=== PATIENT | male | born 1955 | race African-American/Black ===

== ENCOUNTER 2021-11-14 16:21 | Emergency (ER) | payer BC, OTHER ==
[2021-11-14 16:38] VITALS: BMI 27.1
[2021-11-14] MEDS ORDERED: morphine CARPU-JECT 4 MG/1 ML DISP.SYRIN IVPUSH ONE (18:11)
[2021-11-14] MEDS ORDERED: FAMOTIDINE 20 MG/50 ML IVPB 20 MG/50 ML MG IVPB ONE ×2 (18:11→19:21)
[2021-11-14] MEDS ORDERED: SODIUM CHLORIDE 0.9% 500 ML INFUS.BAG IV ONE (18:11)
[2021-11-14] MEDS ORDERED: ONDANSETRON 4 MG/2 ML VIAL IVPUSH ONE (18:13)
[2021-11-14] MEDS ORDERED: ACETAMINOPHEN 325 MG TABLET (FP) PO ONE (18:45)
[2021-11-14 18:50] LABS: BASO % 0.5 % (0-2.0); EOS % 0.6 % (0-4.5); HEMATOCRIT 38.6 % (35.4-49); LYMPH % 13.3 % (8-40); MCH 30.1 pg (25.7-33.7); MCHC 33.6 g/dl (32.0-35.9); MEAN CELL VOLUME 89.7 fl (80-96); MEAN PLT VOLUME 8.7 fl (7.5-11.1); MONO % 10.9 % (3.8-10.2); NEUT % 74.7 % (42.8-82.8); PLATELET COUNT 107 10^3/uL (134-434); RBC 4.31 M/mm3 (4.00-5.60); RDW 15.8 % (11.9-15.9); WHITE BLOOD COUNT 7.9 K/mm3 (4.0-10.0)
[2021-11-14 19:02] LABS: INR 1.46 (0.83-1.09); PROTHROMBIN TIME (PATIENT) 16.9 SEC (9.7-13.0)
[2021-11-14 19:04] LABS: ACTIVATED PTT 30.5 SECONDS (25.2-36.5)
[2021-11-14 19:07] LABS: ALBUMIN 3.5 g/dl (3.4-5.0); BLOOD UREA NITROGEN 8.7 mg/dL (7-18); CALCIUM 9.6 mg/dL (8.5-10.1)
[2021-11-14 19:12] LABS: BILIRUBIN,TOTAL 0.9 mg/dL (0.2-1); TOT PROT 9.2 g/dl (6.4-8.2)
[2021-11-14] MEDS ORDERED: ONDANSETRON 4 MG/2 ML VIAL ONE (19:21)
[2021-11-14] MEDS ORDERED: morphine SULFATE 4 MG/ML VIAL ONE (19:21)
[2021-11-14] MEDS ORDERED: ACETAMINOPHEN 325 MG TABLET (FP) ONE (21:08)
[2021-11-15 04:29] VITALS: BP 137/88; PULSE 102; TEMP 100
== END 2021-11-15 04:30 | disposition short-term general hospital (02) ==
LOC: JER 16:21
PROC: 3E033GC Introduction of Other Therapeutic Substance into Peripheral Vein, Percutaneous Approach (ICD-10-PCS; principal; 2021-11-14)
PROC: 3E033NZ Introduction of Analgesics, Hypnotics, Sedatives into Peripheral Vein, Percutaneous Approach (ICD-10-PCS; 2021-11-14)
PROC: 3E033GC Introduction of Other Therapeutic Substance into Peripheral Vein, Percutaneous Approach (ICD-10-PCS; 2021-11-14)
DX: R16.0 Hepatomegaly, not elsewhere classified (principal)
CPT/HCPCS: 36415; 74177-TC; 80053; 82550; 83605; 83690; 84484; 85025; 85610; 85730; 93005; 93010; 99285-25; C9803; Q9967; U0003; U0005

== ENCOUNTER 2022-08-16 21:10 | Inpatient (IN) | payer OTHER, BC ==
[2022-08-16 23:30] LABS: BASO % 1.2 % (0-2.0); EOS % 4.2 % (0-4.5); HEMATOCRIT 47.9 % (35.4-49); HEMOGLOBIN 16.4 GM/dL (11.7-16.9); LYMPH % 24.1 % (8-40); MCH 30.8 pg (25.7-33.7); MCHC 34.2 g/dl (32.0-35.9); MEAN PLT VOLUME 7.1 fl (7.5-11.1); MONO % 6.1 % (3.8-10.2); NEUT % 64.4 % (42.8-82.8); PLATELET COUNT 131 10^3/uL (134-434); RBC 5.32 M/mm3 (4.00-5.60); RDW 14.5 % (11.9-15.9); WHITE BLOOD COUNT 6.6 K/mm3 (4.0-10.0)
[2022-08-16 23:52] LABS: CALCIUM 9.3 mg/dL (8.5-10.1)
[2022-08-16 23:53] LABS: ALBUMIN 4.1 g/dl (3.4-5.0); BLOOD UREA NITROGEN 12.5 mg/dL (7-18)
[2022-08-16 23:56] LABS: CREATININE 1.2 mg/dL (0.55-1.3)
[2022-08-16 23:57] LABS: BILIRUBIN,TOTAL 0.6 mg/dL (0.2-1); TOT PROT 8.1 g/dl (6.4-8.2)
[2022-08-17] MEDS ORDERED: SODIUM CHLORIDE 1,000 ML IV SCH (04:15)
[2022-08-17 05:36] VITALS: BMI 28.5
[2022-08-17] MEDS ORDERED: ACITRETIN 10 MG PO SCH (10:00)
[2022-08-17] MEDS: LISINOPRIL 5 MG TABLET PO SCH (10:10)
[2022-08-17] MEDS: ENOXAPARIN NA (PORCINE) 40 MG/0.4 ML DISP.SYRIN SQ SCH (10:10)
[2022-08-17] MEDS: TRIAMCINOLONE ACET 0.1% OINT 15 GM TUBE TP SCH (12:00)
[2022-08-17 13:04] LABS: BASO % 0.6 % (0-2.0); EOS % 6.6 % (0-4.5); HEMATOCRIT 43.2 % (35.4-49); HEMOGLOBIN 14.9 GM/dL (11.7-16.9); LYMPH % 26.5 % (8-40); MCH 30.9 pg (25.7-33.7); MCHC 34.5 g/dl (32.0-35.9); MEAN CELL VOLUME 89.8 fl (80-96); MEAN PLT VOLUME 7.5 fl (7.5-11.1); MONO % 7.6 % (3.8-10.2); NEUT % 58.7 % (42.8-82.8); PLATELET COUNT 104 10^3/uL (134-434); RDW 14.4 % (11.9-15.9); WHITE BLOOD COUNT 4.6 K/mm3 (4.0-10.0)
[2022-08-17 13:29] LABS: ALBUMIN 3.3 g/dl (3.4-5.0); BLOOD UREA NITROGEN 16.5 mg/dL (7-18); CALCIUM 8.8 mg/dL (8.5-10.1); MAGNESIUM 2.1 mg/dL (1.8-2.4)
[2022-08-17 13:33] LABS: PHOSPHOROUS 3.7 mg/dL (2.5-4.9)
[2022-08-17 13:34] LABS: BILIRUBIN,TOTAL 0.7 mg/dL (0.2-1); TOT PROT 6.7 g/dl (6.4-8.2)
[2022-08-17] MEDS: ASPIRIN 81 MG CHEWABLE TABLETS PO SCH (15:57)
[2022-08-17] MEDS: ATORVASTATIN CA 80 MG TABLET (FP) PO SCH (15:57)
[2022-08-17] MEDS: SENNOSIDES 8.6MG TABLET (FP) PO SCH (21:25)
[2022-08-17] MEDS: traZODone HCL 50 MG TABLET (FP) PO SCH (21:25)
[2022-08-18] MEDS: LISINOPRIL 5 MG TABLET PO SCH (09:58)
[2022-08-18] MEDS: ASPIRIN 81 MG CHEWABLE TABLETS PO SCH (09:58)
[2022-08-18] MEDS: ENOXAPARIN NA (PORCINE) 40 MG/0.4 ML DISP.SYRIN SQ SCH (09:58)
[2022-08-18] MEDS: TRIAMCINOLONE ACET 0.1% OINT 15 GM TUBE TP SCH (10:01)
[2022-08-18] MEDS: traZODone HCL 50 MG TABLET (FP) PO SCH (21:42)
[2022-08-18] MEDS: ATORVASTATIN CA 80 MG TABLET (FP) PO SCH (21:42)
[2022-08-18] MEDS: SENNOSIDES 8.6MG TABLET (FP) PO SCH (21:42)
[2022-08-19] MEDS: ENOXAPARIN NA (PORCINE) 40 MG/0.4 ML DISP.SYRIN SQ SCH (09:49)
[2022-08-19] MEDS: TRIAMCINOLONE ACET 0.1% OINT 15 GM TUBE TP SCH (09:49)
[2022-08-19] MEDS: LISINOPRIL 5 MG TABLET PO SCH (09:49)
[2022-08-19] MEDS: ASPIRIN 81 MG CHEWABLE TABLETS PO SCH (09:49)
[2022-08-19] MEDS: ATORVASTATIN CA 80 MG TABLET (FP) PO SCH (21:12)
[2022-08-19] MEDS: traZODone HCL 50 MG TABLET (FP) PO SCH (21:12)
[2022-08-19] MEDS: SENNOSIDES 8.6MG TABLET (FP) PO SCH (21:12)
[2022-08-20 09:43] VITALS: PULSE 66; RESP 18
[2022-08-20] MEDS: TRIAMCINOLONE ACET 0.1% OINT 15 GM TUBE TP SCH (09:55)
[2022-08-20] MEDS: LISINOPRIL 5 MG TABLET PO SCH (09:57)
[2022-08-20] MEDS: ASPIRIN 81 MG CHEWABLE TABLETS PO SCH (09:57)
[2022-08-20] MEDS: ENOXAPARIN NA (PORCINE) 40 MG/0.4 ML DISP.SYRIN SQ SCH (10:07)
[2022-08-20 13:27] VITALS: BP 129/80; TEMP 98
== END 2022-08-20 13:51 | disposition home or self-care (01) | DRG 312 ==
LOC: JER 21:10 → JERBED 08-17 00:05 → J4W 08-17 05:11
PROVIDERS: ADMIT Internal Medicine; ATTEND Internal Medicine
DX: R55 Syncope and collapse (principal); C22.7 Other specified carcinomas of liver; I10 Essential (primary) hypertension; E78.5 Hyperlipidemia, unspecified; F32.A Depression, unspecified; F10.10 Alcohol abuse, uncomplicated
CPT/HCPCS: 36415; 70551-TC; 71046-TC-FY; 80053; 83735; 84100; 84443; 84484; 85025; 93005; 93010; 93306-TC; 99285-25; C9803-CS; U0003; U0005

== ENCOUNTER 2022-11-02 00:58 | Inpatient (IN) | payer BC, OTHER ==
[2022-11-02] MEDS ORDERED: SODIUM CHLORIDE 1,000 ML IV STA (02:31)
[2022-11-02] MEDS ORDERED: ACETAMINOPHEN 1000 MG/100 ML BAG IVPB ONE (02:31)
[2022-11-02] MEDS ORDERED: ACETAMINOPHEN INJECTION 100 ML IVPB ONE (02:36)
[2022-11-02 03:50] LABS: BASO % 0.5 % (0-2.0); HEMATOCRIT 47.6 % (35.4-49); HEMOGLOBIN 16.2 GM/dL (11.7-16.9); LYMPH % 15.2 % (8-40); MCH 31.5 pg (25.7-33.7); MEAN CELL VOLUME 92.7 fl (80-96); MEAN PLT VOLUME 8.6 fl (7.5-11.1); MONO % 8.6 % (3.8-10.2); NEUT % 71.7 % (42.8-82.8); PLATELET COUNT 113 10^3/uL (134-434); RBC 5.13 M/mm3 (4.00-5.60); RDW 14.6 % (11.9-15.9); WHITE BLOOD COUNT 8.5 K/mm3 (4.0-10.0)
[2022-11-02 04:05] LABS: INR 1.09 (0.83-1.09); PROTHROMBIN TIME (PATIENT) 12.5 SEC (9.7-13.0)
[2022-11-02 04:13] LABS: CALCIUM 9.2 mg/dL (8.5-10.1)
[2022-11-02 04:14] LABS: ALBUMIN 4.1 g/dl (3.4-5.0); BLOOD UREA NITROGEN 39.6 mg/dL (7-18)
[2022-11-02 04:17] LABS: CREATININE 5.5 mg/dL (0.55-1.3)
[2022-11-02 04:18] LABS: TOT PROT 8.5 g/dl (6.4-8.2)
[2022-11-02 04:19] LABS: BILIRUBIN,TOTAL 0.9 mg/dL (0.2-1)
[2022-11-02] MEDS ORDERED: SODIUM CHLORIDE 500 ML IV STA (08:00)
[2022-11-02] MEDS: oxyCODONE HCL 5 MG TABLET PO PRN ×3 (08:34→23:03)
[2022-11-02] MEDS: SODIUM CHLORIDE 1,000 ML IV SCH ×3 (09:00→16:39)
[2022-11-02] MEDS: NICOTINE 21 MG/24 HOURS TOPICAL PATCH TD SCH ×2 (12:36→14:09)
[2022-11-02] MEDS: CEFTRIAXONE 1 GM in DEXTROSE 5%-WATER - 50 ML IVPB SCH (12:37)
[2022-11-02 13:47] VITALS: BMI 28.3
[2022-11-02] MEDS: HEPARIN NA (PORCINE) 5,000 UNITS/ML 1ML VIAL SQ SCH ×2 (14:06→22:56)
[2022-11-02 15:12] LABS: EPI CELLS 11 /uL (0-25.1); HYALINE CASTS 1 /uL (0-3.1); PH,URINE 5.5 (5.0-8.0); URINE APPEARANCE CLEAR; URINE BACTERIA 2 /uL (0-1359); URINE BILIRUBIN NEGATIVE (NEGATIVE); URINE COLOR YELLOW; URINE GLUCOSE (UA) NEGATIVE (NEGATIVE); URINE KETONE NEGATIVE (NEGATIVE); URINE LEUK ESTERASE NEGATIVE (NEGATIVE); URINE NITRITE NEGATIVE (NEGATIVE); URINE PROTEIN 1+ (NEGATIVE); URINE RBC 15 /uL (0-23.9); URINE UROBILINOGEN 0.2 mg/dL (0.2-1.0); URINE WBC 24 /uL (0-25.8)
[2022-11-02] MEDS: ACETAMINOPHEN 325 MG TABLET (FP) PO PRN (16:38)
[2022-11-02 18:47] LABS: ALBUMIN 3.8 g/dl (3.4-5.0); CALCIUM 8.9 mg/dL (8.5-10.1)
[2022-11-02 18:48] LABS: BLOOD UREA NITROGEN 37.8 mg/dL (7-18)
[2022-11-02 18:50] LABS: CREATININE 3.8 mg/dL (0.55-1.3)
[2022-11-02 18:52] LABS: BILIRUBIN,TOTAL 0.9 mg/dL (0.2-1); TOT PROT 7.9 g/dl (6.4-8.2)
[2022-11-02] MEDS: traZODone HCL 50 MG TABLET (FP) PO SCH (22:56)
[2022-11-03] MEDS: ACETAMINOPHEN 325 MG TABLET (FP) PO PRN (07:49)
[2022-11-03] MEDS: HEPARIN NA (PORCINE) 5,000 UNITS/ML 1ML VIAL SQ SCH ×2 (07:52→13:36)
[2022-11-03] MEDS: NICOTINE 21 MG/24 HOURS TOPICAL PATCH TD SCH (09:25)
[2022-11-03] MEDS: CEFTRIAXONE 1 GM in DEXTROSE 5%-WATER - 50 ML IVPB SCH (09:25)
[2022-11-03 10:07] LABS: BASO % 0.3 % (0-2.0); EOS % 0.5 % (0-4.5); HEMATOCRIT 44.9 % (35.4-49); HEMOGLOBIN 14.8 GM/dL (11.7-16.9); MCH 30.8 pg (25.7-33.7); MEAN CELL VOLUME 93.1 fl (80-96); MEAN PLT VOLUME 9.1 fl (7.5-11.1); MONO % 7.7 % (3.8-10.2); NEUT % 81.5 % (42.8-82.8); PLATELET COUNT 88 10^3/uL (134-434); RBC 4.82 M/mm3 (4.00-5.60); RDW 14.8 % (11.9-15.9); WHITE BLOOD COUNT 6.9 K/mm3 (4.0-10.0)
[2022-11-03 10:40] LABS: CALCIUM 8.7 mg/dL (8.5-10.1)
[2022-11-03 10:41] LABS: ALBUMIN 3.6 g/dl (3.4-5.0); BLOOD UREA NITROGEN 31.6 mg/dL (7-18); MAGNESIUM 2.1 mg/dL (1.8-2.4)
[2022-11-03 10:43] LABS: PHOSPHOROUS 3.2 mg/dL (2.5-4.9)
[2022-11-03 10:44] LABS: CREATININE 2.6 mg/dL (0.55-1.3)
[2022-11-03 10:45] LABS: TOT PROT 7.6 g/dl (6.4-8.2)
[2022-11-03] MEDS: SODIUM CHLORIDE 1,000 ML IV SCH ×2 (12:03→16:00)
[2022-11-04] MEDS: MAG HYDROX/AL HYDROX/SIMETH 30 ML UNIT-DOSE CUP PO PRN ×2 (00:28→06:27)
[2022-11-04] MEDS: HEPARIN NA (PORCINE) 5,000 UNITS/ML 1ML VIAL SQ SCH ×4 (00:29→22:11)
[2022-11-04] MEDS: traZODone HCL 50 MG TABLET (FP) PO SCH ×2 (00:29→22:11)
[2022-11-04] MEDS: SODIUM CHLORIDE 1,000 ML IV SCH ×3 (00:56→16:00)
[2022-11-04] MEDS ORDERED: ACETAMINOPHEN 1000 MG/100 ML BAG IVPB ONE (06:36)
[2022-11-04] MEDS ORDERED: ONDANSETRON *ODT* 4 MG TABLET SL ONE (06:36)
[2022-11-04] MEDS: CEFTRIAXONE 1 GM in DEXTROSE 5%-WATER - 50 ML IVPB SCH (09:17)
[2022-11-04] MEDS: NICOTINE 21 MG/24 HOURS TOPICAL PATCH TD SCH (09:17)
[2022-11-04 10:36] LABS: BASO % 0.3 % (0-2.0); EOS % 0.1 % (0-4.5); HEMATOCRIT 44.1 % (35.4-49); HEMOGLOBIN 14.6 GM/dL (11.7-16.9); LYMPH % 9.6 % (8-40); MCH 30.8 pg (25.7-33.7); MEAN CELL VOLUME 93.3 fl (80-96); MEAN PLT VOLUME 8.6 fl (7.5-11.1); MONO % 9.5 % (3.8-10.2); NEUT % 80.5 % (42.8-82.8); PLATELET COUNT 95 10^3/uL (134-434); RBC 4.73 M/mm3 (4.00-5.60); RDW 14.5 % (11.9-15.9); WHITE BLOOD COUNT 7.8 K/mm3 (4.0-10.0)
[2022-11-04 11:10] LABS: ALBUMIN 3.5 g/dl (3.4-5.0); BLOOD UREA NITROGEN 29.4 mg/dL (7-18); CREATININE 2.1 mg/dL (0.55-1.3)
[2022-11-04 11:12] LABS: BILIRUBIN,TOTAL 0.8 mg/dL (0.2-1); MAGNESIUM 2.4 mg/dL (1.8-2.4); TOT PROT 7.6 g/dl (6.4-8.2)
[2022-11-04] MEDS: amLODIPine BESYLATE 10 MG TABLET (FP) PO SCH (11:59)
[2022-11-04] MEDS ORDERED: SENNOSIDES 8.6MG TABLET (FP) PO PRN (17:30)
[2022-11-04] MEDS: POLYETHYLENE GLYCOL (HEALTHYLAX) 3350 17 GM PACKET PO SCH (22:11)
[2022-11-04] MEDS: DOCUSATE SODIUM 100 MG CAPSULE (FP) PO SCH (22:11)
[2022-11-04] MEDS: hydrALAZINE HCL 10 MG TABLET PO SCH (22:11)
[2022-11-05] MEDS: ACETAMINOPHEN 325 MG TABLET (FP) PO PRN ×2 (04:42→13:38)
[2022-11-05] MEDS: DOCUSATE SODIUM 100 MG CAPSULE (FP) PO SCH ×3 (06:49→22:14)
[2022-11-05] MEDS: HEPARIN NA (PORCINE) 5,000 UNITS/ML 1ML VIAL SQ SCH ×3 (06:50→22:23)
[2022-11-05] MEDS: NICOTINE 21 MG/24 HOURS TOPICAL PATCH TD SCH (09:57)
[2022-11-05] MEDS: POLYETHYLENE GLYCOL (HEALTHYLAX) 3350 17 GM PACKET PO SCH ×2 (09:57→22:23)
[2022-11-05] MEDS: hydrALAZINE HCL 10 MG TABLET PO SCH ×2 (09:57→22:14)
[2022-11-05] MEDS: CEFTRIAXONE 1 GM in DEXTROSE 5%-WATER - 50 ML IVPB SCH (09:57)
[2022-11-05] MEDS: amLODIPine BESYLATE 10 MG TABLET (FP) PO SCH (09:57)
[2022-11-05 11:28] LABS: CALCIUM 8.8 mg/dL (8.5-10.1)
[2022-11-05 11:29] LABS: ALBUMIN 3.4 g/dl (3.4-5.0); BLOOD UREA NITROGEN 26.9 mg/dL (7-18); MAGNESIUM 2.3 mg/dL (1.8-2.4)
[2022-11-05 11:32] LABS: CREATININE 1.7 mg/dL (0.55-1.3)
[2022-11-05 11:33] LABS: TOT PROT 7.4 g/dl (6.4-8.2)
[2022-11-05 11:34] LABS: BILIRUBIN,TOTAL 0.8 mg/dL (0.2-1)
[2022-11-05] MEDS: traZODone HCL 50 MG TABLET (FP) PO SCH (22:14)
[2022-11-06] MEDS: HEPARIN NA (PORCINE) 5,000 UNITS/ML 1ML VIAL SQ SCH ×2 (06:48→13:20)
[2022-11-06] MEDS: DOCUSATE SODIUM 100 MG CAPSULE (FP) PO SCH ×3 (06:48→23:38)
[2022-11-06] MEDS: amLODIPine BESYLATE 10 MG TABLET (FP) PO SCH (09:20)
[2022-11-06] MEDS: hydrALAZINE HCL 10 MG TABLET PO SCH ×2 (09:20→23:38)
[2022-11-06] MEDS: POLYETHYLENE GLYCOL (HEALTHYLAX) 3350 17 GM PACKET PO SCH ×2 (09:22→23:38)
[2022-11-06] MEDS: CEFTRIAXONE 1 GM in DEXTROSE 5%-WATER - 50 ML IVPB SCH (09:23)
[2022-11-06] MEDS: NICOTINE 21 MG/24 HOURS TOPICAL PATCH TD SCH (09:23)
[2022-11-06 10:01] LABS: CALCIUM 8.6 mg/dL (8.5-10.1)
[2022-11-06 10:02] LABS: ALBUMIN 3.4 g/dl (3.4-5.0); BLOOD UREA NITROGEN 21.6 mg/dL (7-18); MAGNESIUM 2.3 mg/dL (1.8-2.4)
[2022-11-06 10:05] LABS: CREATININE 1.6 mg/dL (0.55-1.3)
[2022-11-06 10:07] LABS: BILIRUBIN,TOTAL 0.9 mg/dL (0.2-1); TOT PROT 7.5 g/dl (6.4-8.2)
[2022-11-06 10:25] LABS: BASO % 0.4 % (0-2.0); HEMATOCRIT 45.2 % (35.4-49); HEMOGLOBIN 15.1 GM/dL (11.7-16.9); LYMPH % 14.9 % (8-40); MCH 31.5 pg (25.7-33.7); MCHC 33.4 g/dl (32.0-35.9); MEAN CELL VOLUME 94.3 fl (80-96); MEAN PLT VOLUME 9.3 fl (7.5-11.1); MONO % 10.2 % (3.8-10.2); NEUT % 73.5 % (42.8-82.8); PLATELET COUNT 118 10^3/uL (134-434); RDW 14.5 % (11.9-15.9); WHITE BLOOD COUNT 8.3 K/mm3 (4.0-10.0)
[2022-11-06] MEDS ORDERED: FUROSEMIDE 40 MG/4 ML INJECTABLE VIAL IVPUSH ONE (11:06)
[2022-11-06] MEDS: ACETAMINOPHEN 325 MG TABLET (FP) PO PRN (13:02)
[2022-11-06] MEDS ORDERED: HEPARIN NA (PORCINE) 5,000 UNITS/ML 1ML VIAL IVPUSH PRN ×2 (18:26)
[2022-11-06] MEDS: HEPARIN - 25,000 UNIT in SODIUM CHLORIDE 495 ML IV SCH (22:34)
[2022-11-06] MEDS: traZODone HCL 50 MG TABLET (FP) PO SCH (23:38)
[2022-11-07] MEDS: DOCUSATE SODIUM 100 MG CAPSULE (FP) PO SCH ×3 (05:04→22:39)
[2022-11-07] MEDS: NICOTINE 21 MG/24 HOURS TOPICAL PATCH TD SCH (09:41)
[2022-11-07] MEDS: POLYETHYLENE GLYCOL (HEALTHYLAX) 3350 17 GM PACKET PO SCH ×2 (09:41→22:39)
[2022-11-07] MEDS: CEFTRIAXONE 1 GM in DEXTROSE 5%-WATER - 50 ML IVPB SCH (09:41)
[2022-11-07] MEDS: hydrALAZINE HCL 10 MG TABLET PO SCH ×2 (09:41→22:39)
[2022-11-07] MEDS: amLODIPine BESYLATE 10 MG TABLET (FP) PO SCH (09:41)
[2022-11-07 10:37] LABS: ACTIVATED PTT 26.3 SECONDS (25.2-36.5)
[2022-11-07 10:40] LABS: BASO % 0.5 % (0-2.0); EOS % 0.8 % (0-4.5); HEMATOCRIT 41.2 % (35.4-49); HEMOGLOBIN 13.7 GM/dL (11.7-16.9); LYMPH % 11.5 % (8-40); MCH 31.2 pg (25.7-33.7); MCHC 33.2 g/dl (32.0-35.9); MEAN PLT VOLUME 8.9 fl (7.5-11.1); MONO % 9.9 % (3.8-10.2); NEUT % 77.3 % (42.8-82.8); PLATELET COUNT 112 10^3/uL (134-434); RBC 4.38 M/mm3 (4.00-5.60); RDW 14.5 % (11.9-15.9); WHITE BLOOD COUNT 8.2 K/mm3 (4.0-10.0)
[2022-11-07 10:53] LABS: INR 1.16 (0.83-1.09); PROTHROMBIN TIME (PATIENT) 13.4 SEC (9.7-13.0)
[2022-11-07] MEDS: MAG HYDROX/AL HYDROX/SIMETH 30 ML UNIT-DOSE CUP PO PRN (11:30)
[2022-11-07 11:39] LABS: ALBUMIN 3.1 g/dl (3.4-5.0); BLOOD UREA NITROGEN 23.5 mg/dL (7-18)
[2022-11-07 11:41] LABS: CALCIUM 8.4 mg/dL (8.5-10.1)
[2022-11-07 11:42] LABS: CREATININE 1.7 mg/dL (0.55-1.3); MAGNESIUM 2.2 mg/dL (1.8-2.4)
[2022-11-07 11:43] LABS: BILIRUBIN,TOTAL 1.3 mg/dL (0.2-1); TOT PROT 7.1 g/dl (6.4-8.2)
[2022-11-07] MEDS: oxyCODONE HCL 5 MG TABLET PO PRN (13:05)
[2022-11-07] MEDS: HEPARIN - 25,000 UNIT in SODIUM CHLORIDE 495 ML IV SCH (18:20)
[2022-11-07] MEDS: AMINO ACIDS/PROTEIN HYDROLYS 30 ML LIQUID.PKT PO SCH (18:28)
[2022-11-07] MEDS: traZODone HCL 50 MG TABLET (FP) PO SCH (22:39)
[2022-11-08] MEDS: HEPARIN - 25,000 UNIT in SODIUM CHLORIDE 495 ML IV SCH (02:06)
[2022-11-08] MEDS: DOCUSATE SODIUM 100 MG CAPSULE (FP) PO SCH ×3 (05:33→22:14)
[2022-11-08] MEDS: CEFTRIAXONE 1 GM in DEXTROSE 5%-WATER - 50 ML IVPB SCH (09:52)
[2022-11-08] MEDS: hydrALAZINE HCL 10 MG TABLET PO SCH ×2 (09:52→22:14)
[2022-11-08] MEDS: AMINO ACIDS/PROTEIN HYDROLYS 30 ML LIQUID.PKT PO SCH ×2 (09:52→17:44)
[2022-11-08] MEDS: NICOTINE 21 MG/24 HOURS TOPICAL PATCH TD SCH (09:52)
[2022-11-08] MEDS: amLODIPine BESYLATE 10 MG TABLET (FP) PO SCH (09:52)
[2022-11-08] MEDS: POLYETHYLENE GLYCOL (HEALTHYLAX) 3350 17 GM PACKET PO SCH ×2 (09:52→22:14)
[2022-11-08 11:06] LABS: BASO % 0.5 % (0-2.0); EOS % 1.5 % (0-4.5); HEMATOCRIT 42.6 % (35.4-49); HEMOGLOBIN 14.3 GM/dL (11.7-16.9); LYMPH % 9.9 % (8-40); MCH 31.7 pg (25.7-33.7); MCHC 33.6 g/dl (32.0-35.9); MEAN CELL VOLUME 94.1 fl (80-96); MEAN PLT VOLUME 8.3 fl (7.5-11.1); MONO % 7.6 % (3.8-10.2); NEUT % 80.5 % (42.8-82.8); PLATELET COUNT 147 10^3/uL (134-434); RBC 4.53 M/mm3 (4.00-5.60); RDW 14.2 % (11.9-15.9); WHITE BLOOD COUNT 9.8 K/mm3 (4.0-10.0)
[2022-11-08 11:42] LABS: ALBUMIN 3.2 g/dl (3.4-5.0); BILIRUBIN,TOTAL 0.8 mg/dL (0.2-1); BLOOD UREA NITROGEN 26.2 mg/dL (7-18); CALCIUM 8.7 mg/dL (8.5-10.1); CREATININE 1.8 mg/dL (0.55-1.3); MAGNESIUM 2.3 mg/dL (1.8-2.4)
[2022-11-08 11:43] LABS: TOT PROT 7.1 g/dl (6.4-8.2)
[2022-11-08] MEDS: oxyCODONE HCL 5 MG TABLET PO PRN ×2 (12:34→20:08)
[2022-11-08] MEDS: traZODone HCL 50 MG TABLET (FP) PO SCH (22:13)
[2022-11-09] MEDS: HEPARIN - 25,000 UNIT in SODIUM CHLORIDE 495 ML IV SCH ×2 (01:35→19:29)
[2022-11-09] MEDS: ACETAMINOPHEN 325 MG TABLET (FP) PO PRN (02:27)
[2022-11-09] MEDS: DOCUSATE SODIUM 100 MG CAPSULE (FP) PO SCH ×4 (07:06→22:50)
[2022-11-09] MEDS: oxyCODONE HCL 5 MG TABLET PO PRN ×2 (07:07→22:55)
[2022-11-09 09:45] LABS: HEMATOCRIT 39.2 % (35.4-49); HEMOGLOBIN 13.2 GM/dL (11.7-16.9); MCH 31.4 pg (25.7-33.7); MCHC 33.6 g/dl (32.0-35.9); MEAN CELL VOLUME 93.5 fl (80-96); MEAN PLT VOLUME 8.5 fl (7.5-11.1); PLATELET COUNT 193 10^3/uL (134-434); RDW 14.4 % (11.9-15.9); WHITE BLOOD COUNT 9.3 K/mm3 (4.0-10.0)
[2022-11-09 10:19] LABS: CALCIUM 8.9 mg/dL (8.5-10.1)
[2022-11-09 10:20] LABS: BLOOD UREA NITROGEN 26.9 mg/dL (7-18)
[2022-11-09 10:23] LABS: CREATININE 1.6 mg/dL (0.55-1.3)
[2022-11-09] MEDS: POLYETHYLENE GLYCOL (HEALTHYLAX) 3350 17 GM PACKET PO SCH ×3 (10:37→22:50)
[2022-11-09] MEDS: hydrALAZINE HCL 10 MG TABLET PO SCH ×2 (10:37→22:50)
[2022-11-09] MEDS: AMINO ACIDS/PROTEIN HYDROLYS 30 ML LIQUID.PKT PO SCH ×2 (10:37→18:28)
[2022-11-09] MEDS: NICOTINE 21 MG/24 HOURS TOPICAL PATCH TD SCH (10:37)
[2022-11-09] MEDS: amLODIPine BESYLATE 10 MG TABLET (FP) PO SCH (10:37)
[2022-11-09] MEDS: ENOXAPARIN NA (PORCINE) 100 MG/1 ML DISP.SYRIN SQ SCH (22:49)
[2022-11-09] MEDS: traZODone HCL 50 MG TABLET (FP) PO SCH (22:50)
[2022-11-10] MEDS: DOCUSATE SODIUM 100 MG CAPSULE (FP) PO SCH ×3 (07:02→22:45)
[2022-11-10] MEDS: oxyCODONE HCL 5 MG TABLET PO PRN (07:02)
[2022-11-10 09:59] LABS: ALBUMIN 2.9 g/dl (3.4-5.0)
[2022-11-10 10:00] LABS: BLOOD UREA NITROGEN 24.9 mg/dL (7-18); MAGNESIUM 2.2 mg/dL (1.8-2.4)
[2022-11-10 10:02] LABS: CALCIUM 8.9 mg/dL (8.5-10.1); CREATININE 1.6 mg/dL (0.55-1.3)
[2022-11-10 10:04] LABS: BILIRUBIN,TOTAL 0.8 mg/dL (0.2-1); TOT PROT 6.9 g/dl (6.4-8.2)
[2022-11-10] MEDS: hydrALAZINE HCL 10 MG TABLET PO SCH ×2 (10:08→22:44)
[2022-11-10] MEDS: POLYETHYLENE GLYCOL (HEALTHYLAX) 3350 17 GM PACKET PO SCH ×3 (10:08→22:45)
[2022-11-10] MEDS: ESCITALOPRAM OXALATE 10 MG TABLET PO SCH (10:08)
[2022-11-10] MEDS: ENOXAPARIN NA (PORCINE) 100 MG/1 ML DISP.SYRIN SQ SCH ×2 (10:09→22:45)
[2022-11-10] MEDS: NICOTINE 21 MG/24 HOURS TOPICAL PATCH TD SCH (10:09)
[2022-11-10] MEDS: AMINO ACIDS/PROTEIN HYDROLYS 30 ML LIQUID.PKT PO SCH ×3 (10:09→17:12)
[2022-11-10] MEDS: amLODIPine BESYLATE 10 MG TABLET (FP) PO SCH (10:09)
[2022-11-10] MEDS: ACETAMINOPHEN 325 MG TABLET (FP) PO PRN (10:10)
[2022-11-10] MEDS: CEFTRIAXONE 1 GM in DEXTROSE 5%-WATER - 50 ML IVPB SCH (11:57)
[2022-11-10] MEDS: traZODone HCL 50 MG TABLET (FP) PO SCH (22:44)
[2022-11-11] MEDS: DOCUSATE SODIUM 100 MG CAPSULE (FP) PO SCH ×3 (06:12→22:15)
[2022-11-11] MEDS: CEFTRIAXONE 1 GM in DEXTROSE 5%-WATER - 50 ML IVPB SCH (10:11)
[2022-11-11] MEDS: POLYETHYLENE GLYCOL (HEALTHYLAX) 3350 17 GM PACKET PO SCH ×2 (10:12→22:18)
[2022-11-11] MEDS: AMINO ACIDS/PROTEIN HYDROLYS 30 ML LIQUID.PKT PO SCH ×2 (10:12→17:36)
[2022-11-11] MEDS: amLODIPine BESYLATE 10 MG TABLET (FP) PO SCH (10:13)
[2022-11-11] MEDS: ENOXAPARIN NA (PORCINE) 100 MG/1 ML DISP.SYRIN SQ SCH ×2 (10:13→22:19)
[2022-11-11] MEDS: hydrALAZINE HCL 10 MG TABLET PO SCH ×2 (10:13→22:15)
[2022-11-11] MEDS: ESCITALOPRAM OXALATE 10 MG TABLET PO SCH (10:13)
[2022-11-11] MEDS: NICOTINE 21 MG/24 HOURS TOPICAL PATCH TD SCH (10:15)
[2022-11-11 10:46] LABS: ALBUMIN 2.9 g/dl (3.4-5.0); BLOOD UREA NITROGEN 25.6 mg/dL (7-18); MAGNESIUM 2.2 mg/dL (1.8-2.4)
[2022-11-11 10:48] LABS: CREATININE 1.6 mg/dL (0.55-1.3)
[2022-11-11 10:50] LABS: TOT PROT 7.1 g/dl (6.4-8.2)
[2022-11-11 10:51] LABS: CALCIUM 8.8 mg/dL (8.5-10.1)
[2022-11-11] MEDS: ACETAMINOPHEN 325 MG TABLET (FP) PO PRN (14:15)
[2022-11-11] MEDS: traZODone HCL 50 MG TABLET (FP) PO SCH (22:15)
[2022-11-12] MEDS: DOCUSATE SODIUM 100 MG CAPSULE (FP) PO SCH ×3 (06:00→22:47)
[2022-11-12] MEDS: AMINO ACIDS/PROTEIN HYDROLYS 30 ML LIQUID.PKT PO SCH ×2 (09:41→17:11)
[2022-11-12] MEDS: NICOTINE 21 MG/24 HOURS TOPICAL PATCH TD SCH (09:41)
[2022-11-12] MEDS: ESCITALOPRAM OXALATE 10 MG TABLET PO SCH (09:41)
[2022-11-12] MEDS: hydrALAZINE HCL 10 MG TABLET PO SCH ×2 (09:41→22:48)
[2022-11-12] MEDS: amLODIPine BESYLATE 10 MG TABLET (FP) PO SCH (09:41)
[2022-11-12] MEDS: ENOXAPARIN NA (PORCINE) 100 MG/1 ML DISP.SYRIN SQ SCH ×2 (09:41→22:48)
[2022-11-12] MEDS: CEFTRIAXONE 1 GM in DEXTROSE 5%-WATER - 50 ML IVPB SCH (09:42)
[2022-11-12] MEDS: POLYETHYLENE GLYCOL (HEALTHYLAX) 3350 17 GM PACKET PO SCH ×2 (09:44→22:49)
[2022-11-12 10:18] LABS: ALBUMIN 2.8 g/dl (3.4-5.0); BILIRUBIN,TOTAL 0.6 mg/dL (0.2-1); BLOOD UREA NITROGEN 25.3 mg/dL (7-18); CALCIUM 8.9 mg/dL (8.5-10.1); CREATININE 1.5 mg/dL (0.55-1.3); MAGNESIUM 2.5 mg/dL (1.8-2.4); TOT PROT 6.7 g/dl (6.4-8.2)
[2022-11-12] MEDS: ACETAMINOPHEN 325 MG TABLET (FP) PO PRN (14:55)
[2022-11-12] MEDS: traZODone HCL 50 MG TABLET (FP) PO SCH (22:47)
[2022-11-13] MEDS: ACETAMINOPHEN 325 MG TABLET (FP) PO PRN (03:28)
[2022-11-13] MEDS: DOCUSATE SODIUM 100 MG CAPSULE (FP) PO SCH ×3 (06:33→21:51)
[2022-11-13] MEDS: CEFTRIAXONE 1 GM in DEXTROSE 5%-WATER - 50 ML IVPB SCH (10:17)
[2022-11-13] MEDS: AMINO ACIDS/PROTEIN HYDROLYS 30 ML LIQUID.PKT PO SCH ×2 (10:17→17:07)
[2022-11-13] MEDS: POLYETHYLENE GLYCOL (HEALTHYLAX) 3350 17 GM PACKET PO SCH ×2 (10:17→21:50)
[2022-11-13] MEDS: NICOTINE 21 MG/24 HOURS TOPICAL PATCH TD SCH (10:18)
[2022-11-13] MEDS: ENOXAPARIN NA (PORCINE) 100 MG/1 ML DISP.SYRIN SQ SCH ×2 (10:19→21:51)
[2022-11-13] MEDS: hydrALAZINE HCL 10 MG TABLET PO SCH ×2 (10:20→21:51)
[2022-11-13] MEDS: ESCITALOPRAM OXALATE 10 MG TABLET PO SCH (10:20)
[2022-11-13] MEDS: amLODIPine BESYLATE 10 MG TABLET (FP) PO SCH (10:20)
[2022-11-13] MEDS: SIMETHICONE 80 MG TAB.CHEW (FP) PO PRN ×3 (11:17→17:07)
[2022-11-13] MEDS: NYSTATIN 100,000 UNIT/GM TOPICAL CREAM 15 GM TUBE TP SCH ×2 (14:41→21:57)
[2022-11-13] MEDS: traZODone HCL 50 MG TABLET (FP) PO SCH (21:51)
[2022-11-13] MEDS: oxyCODONE HCL 5 MG TABLET PO PRN (21:56)
[2022-11-14] MEDS: ACETAMINOPHEN 325 MG TABLET (FP) PO PRN ×2 (04:00→20:20)
[2022-11-14] MEDS: DOCUSATE SODIUM 100 MG CAPSULE (FP) PO SCH ×3 (06:22→22:29)
[2022-11-14] MEDS: AMINO ACIDS/PROTEIN HYDROLYS 30 ML LIQUID.PKT PO SCH ×3 (09:53→17:31)
[2022-11-14] MEDS: ENOXAPARIN NA (PORCINE) 100 MG/1 ML DISP.SYRIN SQ SCH ×2 (09:55→22:30)
[2022-11-14] MEDS: amLODIPine BESYLATE 10 MG TABLET (FP) PO SCH (09:55)
[2022-11-14] MEDS: AMOX TR/POT CLAV 500MG/125MG TABLETS (FP) PO SCH ×2 (09:55→17:31)
[2022-11-14] MEDS: hydrALAZINE HCL 10 MG TABLET PO SCH ×2 (09:55→22:30)
[2022-11-14] MEDS: ESCITALOPRAM OXALATE 10 MG TABLET PO SCH (09:55)
[2022-11-14] MEDS: NICOTINE 21 MG/24 HOURS TOPICAL PATCH TD SCH (09:56)
[2022-11-14] MEDS: POLYETHYLENE GLYCOL (HEALTHYLAX) 3350 17 GM PACKET PO SCH ×2 (09:57→22:30)
[2022-11-14] MEDS: NYSTATIN 100,000 UNIT/GM TOPICAL CREAM 15 GM TUBE TP SCH ×2 (10:03→22:30)
[2022-11-14 10:21] LABS: BASO % 0.4 % (0-2.0); HEMATOCRIT 36.9 % (35.4-49); HEMOGLOBIN 12.3 GM/dL (11.7-16.9); LYMPH % 10.2 % (8-40); MCH 31.2 pg (25.7-33.7); MCHC 33.4 g/dl (32.0-35.9); MEAN CELL VOLUME 93.3 fl (80-96); MEAN PLT VOLUME 8.6 fl (7.5-11.1); MONO % 10.9 % (3.8-10.2); NEUT % 70.5 % (42.8-82.8); PLATELET COUNT 178 10^3/uL (134-434); RBC 3.96 M/mm3 (4.00-5.60); RDW 13.8 % (11.9-15.9)
[2022-11-14 10:45] LABS: CALCIUM 8.6 mg/dL (8.5-10.1)
[2022-11-14 10:46] LABS: ALBUMIN 2.7 g/dl (3.4-5.0); BLOOD UREA NITROGEN 22.5 mg/dL (7-18)
[2022-11-14 10:47] LABS: MAGNESIUM 2.3 mg/dL (1.8-2.4)
[2022-11-14 10:49] LABS: CREATININE 1.3 mg/dL (0.55-1.3)
[2022-11-14 10:50] LABS: TOT PROT 6.7 g/dl (6.4-8.2)
[2022-11-14 10:51] LABS: BILIRUBIN,TOTAL 0.5 mg/dL (0.2-1)
[2022-11-14] MEDS: AMINO ACIDS 4.25%/D5W 1,000 ML IV SCH ×2 (14:39→20:14)
[2022-11-14] MEDS: oxyCODONE HCL 5 MG TABLET PO PRN (14:39)
[2022-11-14] MEDS ORDERED: MIRTAZAPINE 15 MG TABLET (FP) PO SCH (22:00)
[2022-11-14] MEDS: traZODone HCL 50 MG TABLET (FP) PO SCH (22:29)
[2022-11-15] MEDS: oxyCODONE HCL 5 MG TABLET PO PRN (06:21)
[2022-11-15] MEDS: DOCUSATE SODIUM 100 MG CAPSULE (FP) PO SCH ×2 (06:22→14:10)
[2022-11-15] MEDS: AMOX TR/POT CLAV 500MG/125MG TABLETS (FP) PO SCH ×2 (09:17→18:05)
[2022-11-15] MEDS: amLODIPine BESYLATE 10 MG TABLET (FP) PO SCH (09:17)
[2022-11-15] MEDS: ESCITALOPRAM OXALATE 10 MG TABLET PO SCH (09:17)
[2022-11-15] MEDS: hydrALAZINE HCL 10 MG TABLET PO SCH (09:17)
[2022-11-15] MEDS: AMINO ACIDS/PROTEIN HYDROLYS 30 ML LIQUID.PKT PO SCH ×2 (09:17→18:05)
[2022-11-15] MEDS: POLYETHYLENE GLYCOL (HEALTHYLAX) 3350 17 GM PACKET PO SCH (09:17)
[2022-11-15] MEDS: NYSTATIN 100,000 UNIT/GM TOPICAL CREAM 15 GM TUBE TP SCH (09:18)
[2022-11-15] MEDS: NICOTINE 21 MG/24 HOURS TOPICAL PATCH TD SCH (09:18)
[2022-11-15] MEDS: ENOXAPARIN NA (PORCINE) 100 MG/1 ML DISP.SYRIN SQ SCH (09:18)
[2022-11-15 10:59] LABS: HEMATOCRIT 38.6 % (35.4-49); HEMOGLOBIN 13.1 GM/dL (11.7-16.9); MCH 31.6 pg (25.7-33.7); MCHC 33.9 g/dl (32.0-35.9); MEAN CELL VOLUME 93.4 fl (80-96); RBC 4.13 M/mm3 (4.00-5.60); RDW 13.8 % (11.9-15.9)
[2022-11-15 11:02] LABS: WHITE BLOOD COUNT 8.2 K/mm3 (4.0-10.0)
[2022-11-15 11:19] LABS: CALCIUM 8.7 mg/dL (8.5-10.1)
[2022-11-15 11:20] LABS: BLOOD UREA NITROGEN 20.8 mg/dL (7-18); MAGNESIUM 2.1 mg/dL (1.8-2.4)
[2022-11-15 11:22] LABS: CREATININE 1.3 mg/dL (0.55-1.3)
[2022-11-15 11:24] LABS: BILIRUBIN,TOTAL 0.5 mg/dL (0.2-1); TOT PROT 6.9 g/dl (6.4-8.2)
[2022-11-15 11:38] LABS: ANISOCYTOSIS 0; HELMET CELLS 0; HOWELL-JOLLY BODIES 0; MACROCYTOSIS 0; OVALOCYTE 0; ROULEAU 0; SICKELED CELLS 0; TARGET CELLS 0; TEAR DROP CELLS 0; TOXIC GRANULATION 0
[2022-11-15] MEDS: ACETAMINOPHEN 325 MG TABLET (FP) PO PRN (12:56)
[2022-11-15] MEDS: AMINO ACIDS 4.25%/D5W 1,000 ML IV SCH (13:39)
[2022-11-15 15:20] VITALS: BP 116/77; PULSE 77; RESP 16; TEMP 98.1
[2022-11-15] MEDS ORDERED: TAMSULOSIN HCL 0.4 MG CAP PO SCH (20:30)
[2022-11-16] MEDS ORDERED: FINASTERIDE 5 MG TABLET (FP) PO SCH (10:00)
[2022-11-17] MEDS ORDERED: APIXABAN 5 MG TABLET PO SCH (10:00)
== END 2022-11-15 19:09 | DRG 683 ==
LOC: JER 00:58 → JERBED 07:01 → J8W 13:23
PROVIDERS: ADMIT Internal Medicine; ATTEND Nurse Practitioner Family
DX: N17.9 Acute kidney failure, unspecified (principal); B48.8 Other specified mycoses; C22.0 Liver cell carcinoma; I82.413 Acute embolism and thrombosis of femoral vein, bilateral; N39.0 Urinary tract infection, site not specified; N10 Acute pyelonephritis; G47.00 Insomnia, unspecified; F17.210 Nicotine dependence, cigarettes, uncomplicated; D69.6 Thrombocytopenia, unspecified; E86.1 Hypovolemia; R21 Rash and other nonspecific skin eruption; R19.7 Diarrhea, unspecified; B96.89 Other specified bacterial agents as the cause of diseases classified elsewhere; R80.9 Proteinuria, unspecified; R63.0 Anorexia; Z68.28 Body mass index [BMI] 28.0-28.9, adult; R10.9 Unspecified abdominal pain; B19.20 Unspecified viral hepatitis C without hepatic coma; F32.A Depression, unspecified; N40.1 Benign prostatic hyperplasia with lower urinary tract symptoms; R33.8 Other retention of urine
CPT/HCPCS: 0241U-QW; 36415; 71045-TC-FY; 74018-TC-FY; 74176-TC; 80048; 80053; 81003; 82570; 83690; 83735; 84100; 84300; 85025; 85027; 85610; 85730; 87086; 87186; 93005; 93010; 93970-TC; 97116-GP; 97162-GP; 99285-25; C9803-CS; J1644; Q0162; U0003; U0005

== ENCOUNTER 2023-03-23 15:43 | Emergency (ER) | payer OTHER, BC ==
[2023-03-23 15:51] VITALS: BP 164/91; PULSE 65; RESP 18; TEMP 98.2; BMI 16.3
[2023-03-23 16:39] LABS: BASO % 0.9 % (0-2.0); EOS % 9.8 % (0-4.5); HEMATOCRIT 38.4 % (35.4-49); HEMOGLOBIN 13.1 GM/dL (11.7-16.9); LYMPH % 20.4 % (8-40); MCH 31.2 pg (25.7-33.7); MCHC 34.1 g/dl (32.0-35.9); MEAN CELL VOLUME 91.7 fl (80-96); MEAN PLT VOLUME 7.6 fl (7.5-11.1); MONO % 9.2 % (3.8-10.2); NEUT % 59.7 % (42.8-82.8); PLATELET COUNT 168 10^3/uL (134-434); RBC 4.19 M/mm3 (4.00-5.60); RDW 16.2 % (11.9-15.9)
[2023-03-23 17:05] LABS: POTASSIUM 3.9 mmol/L (3.5-5.1)
[2023-03-23 17:07] LABS: CALCIUM 8.9 mg/dL (8.5-10.1)
[2023-03-23 17:08] LABS: ALBUMIN 3.7 g/dl (3.4-5.0); BLOOD UREA NITROGEN 14.7 mg/dL (7-18)
[2023-03-23 17:11] LABS: CREATININE 1.2 mg/dL (0.55-1.3)
[2023-03-23 17:13] LABS: BILIRUBIN,TOTAL 0.4 mg/dL (0.2-1); TOT PROT 7.9 g/dl (6.4-8.2)
== END 2023-03-23 20:45 | disposition home or self-care (01) ==
LOC: JERFT 15:43 → JER 15:43 → JERFT 20:45
DX: I82.503 Chronic embolism and thrombosis of unspecified deep veins of lower extremity, bilateral (principal); I10 Essential (primary) hypertension; R60.9 Edema, unspecified; M79.89 Other specified soft tissue disorders; R05.9 Cough, unspecified
CPT/HCPCS: 36415; 80053; 85025; 93970-TC; 99284-25

== ENCOUNTER 2023-04-19 07:25 | Inpatient (IN) | payer BC, OTHER ==
[2023-04-19 08:19] LABS: INR 1.65 (0.83-1.09)
[2023-04-19 08:21] LABS: ACTIVATED PTT 35.6 SECONDS (25.2-36.5); BASO % 0.9 % (0-2.0); EOS % 7.3 % (0-4.5); HEMATOCRIT 46.2 % (35.4-49); HEMOGLOBIN 15.4 GM/dL (11.7-16.9); LYMPH % 22.5 % (8-40); MCH 29.6 pg (25.7-33.7); MCHC 33.4 g/dl (32.0-35.9); MEAN CELL VOLUME 88.6 fl (80-96); MEAN PLT VOLUME 7.6 fl (7.5-11.1); NEUT % 60.3 % (42.8-82.8); PLATELET COUNT 205 10^3/uL (134-434); RBC 5.22 M/mm3 (4.00-5.60); RDW 15.4 % (11.9-15.9); WHITE BLOOD COUNT 4.9 K/mm3 (4.0-10.0)
[2023-04-19 08:24] LABS: POTASSIUM 4.1 mmol/L (3.5-5.1)
[2023-04-19 08:28] LABS: ALBUMIN 3.9 g/dl (3.4-5.0); CALCIUM 9.6 mg/dL (8.5-10.1)
[2023-04-19 08:29] LABS: BLOOD UREA NITROGEN 14.7 mg/dL (7-18)
[2023-04-19 08:31] LABS: CREATININE 1.7 mg/dL (0.55-1.3)
[2023-04-19 08:33] LABS: BILIRUBIN,TOTAL 1.2 mg/dL (0.2-1); TOT PROT 8.2 g/dl (6.4-8.2)
[2023-04-19] MEDS ORDERED: SODIUM CHLORIDE 0.9% 500 ML INFUS.BAG IV ONE (08:46)
[2023-04-19] MEDS ORDERED: oxyCODONE HCL 5 MG TABLET PO PRN (11:22)
[2023-04-19] MEDS ORDERED: SENNOSIDES/DOCUSATE COMBO (SENNA PLUS) TABLET (UD) PO PRN (11:22)
[2023-04-19] MEDS ORDERED: DOCUSATE SODIUM 100 MG CAPSULE (FP) PO PRN (11:22)
[2023-04-19] MEDS ORDERED: traZODone HCL 50 MG TABLET (FP) PO PRN (11:22)
[2023-04-19 12:14] LABS: BILIRUBIN,DIRECT 0.2 mg/dL (0.0-0.2)
[2023-04-19 16:38] VITALS: BMI 27.7
[2023-04-19] MEDS: SODIUM CHLORIDE 1,000 ML IV SCH (17:16)
[2023-04-19] MEDS ORDERED: levETIRAcetam 500 MG/5 ML INJECTION VIAL IVPB ONE ×2 (19:44→22:00)
[2023-04-19] MEDS: APIXABAN 5 MG TABLET PO SCH (21:52)
[2023-04-19] MEDS: ATORVASTATIN CA 40 MG TABLET (FP) PO SCH (21:52)
[2023-04-20 07:23] LABS: BASO % 0.6 % (0-2.0); EOS % 5.4 % (0-4.5); HEMATOCRIT 41.4 % (35.4-49); HEMOGLOBIN 13.7 GM/dL (11.7-16.9); LYMPH % 21.8 % (8-40); MCH 29.8 pg (25.7-33.7); MCHC 33.1 g/dl (32.0-35.9); MONO % 8.4 % (3.8-10.2); NEUT % 63.8 % (42.8-82.8); PLATELET COUNT 155 10^3/uL (134-434); RBC 4.61 M/mm3 (4.00-5.60); WHITE BLOOD COUNT 4.5 K/mm3 (4.0-10.0)
[2023-04-20] MEDS: SODIUM CHLORIDE 1,000 ML IV SCH (07:46)
[2023-04-20 07:48] LABS: POTASSIUM 3.9 mmol/L (3.5-5.1)
[2023-04-20 07:49] LABS: CALCIUM 8.9 mg/dL (8.5-10.1)
[2023-04-20 07:50] LABS: MAGNESIUM 1.8 mg/dL (1.8-2.4)
[2023-04-20 07:51] LABS: BLOOD UREA NITROGEN 14.1 mg/dL (7-18)
[2023-04-20 07:53] LABS: CREATININE 1.2 mg/dL (0.55-1.3)
[2023-04-20 07:54] LABS: PHOSPHOROUS 3.3 mg/dL (2.5-4.9)
[2023-04-20 07:55] LABS: TOT PROT 6.6 g/dl (6.4-8.2)
[2023-04-20 07:56] LABS: BILIRUBIN,TOTAL 0.4 mg/dL (0.2-1)
[2023-04-20 08:01] LABS: ALBUMIN 3.1 g/dl (3.4-5.0)
[2023-04-20] MEDS ORDERED: ESCITALOPRAM OXALATE 10 MG TABLET PO SCH (10:00)
[2023-04-20] MEDS: amLODIPine BESYLATE 10 MG TABLET (FP) PO SCH (10:45)
[2023-04-20] MEDS: TAMSULOSIN HCL 0.4 MG CAP PO SCH (10:45)
[2023-04-20] MEDS: APIXABAN 5 MG TABLET PO SCH ×2 (10:45→21:26)
[2023-04-20] MEDS: levETIRAcetam 500 MG TABLET (FP) PO SCH ×2 (10:46→21:28)
[2023-04-20] MEDS: FINASTERIDE 5 MG TABLET (FP) PO SCH (10:46)
[2023-04-20] MEDS: LISINOPRIL 5 MG TABLET PO SCH (10:46)
[2023-04-20] MEDS: NICOTINE 14 MG/24 HOURS TOPICAL PATCH TD SCH (10:46)
[2023-04-20] MEDS: ASPIRIN 81 MG CHEWABLE TABLETS PO SCH (10:46)
[2023-04-20] MEDS: MIRTAZAPINE 15 MG TABLET (FP) PO SCH (21:26)
[2023-04-20] MEDS: ATORVASTATIN CA 40 MG TABLET (FP) PO SCH (21:27)
[2023-04-21 08:48] LABS: POTASSIUM 3.7 mmol/L (3.5-5.1)
[2023-04-21 08:59] LABS: BLOOD UREA NITROGEN 10.6 mg/dL (7-18)
[2023-04-21 09:02] LABS: CREATININE 1.1 mg/dL (0.55-1.3)
[2023-04-21] MEDS: NICOTINE 14 MG/24 HOURS TOPICAL PATCH TD SCH (10:16)
[2023-04-21] MEDS: levETIRAcetam 500 MG TABLET (FP) PO SCH ×2 (10:16→22:02)
[2023-04-21] MEDS: FINASTERIDE 5 MG TABLET (FP) PO SCH (10:16)
[2023-04-21] MEDS: TAMSULOSIN HCL 0.4 MG CAP PO SCH (10:16)
[2023-04-21] MEDS: ASPIRIN 81 MG CHEWABLE TABLETS PO SCH (10:16)
[2023-04-21] MEDS: APIXABAN 5 MG TABLET PO SCH ×2 (10:16→22:02)
[2023-04-21] MEDS: amLODIPine BESYLATE 10 MG TABLET (FP) PO SCH (10:16)
[2023-04-21] MEDS: ESCITALOPRAM OXALATE 20 MG TABLET PO SCH (10:17)
[2023-04-21] MEDS: LISINOPRIL 5 MG TABLET PO SCH (10:17)
[2023-04-21] MEDS: MIRTAZAPINE 15 MG TABLET (FP) PO SCH (22:02)
[2023-04-21] MEDS: ATORVASTATIN CA 40 MG TABLET (FP) PO SCH (22:02)
[2023-04-22 08:08] LABS: BASO % 0.7 % (0-2.0); EOS % 7.2 % (0-4.5); HEMATOCRIT 43.8 % (35.4-49); HEMOGLOBIN 14.6 GM/dL (11.7-16.9); LYMPH % 21.1 % (8-40); MCH 29.5 pg (25.7-33.7); MCHC 33.3 g/dl (32.0-35.9); MEAN CELL VOLUME 88.7 fl (80-96); MEAN PLT VOLUME 7.4 fl (7.5-11.1); MONO % 8.6 % (3.8-10.2); NEUT % 62.4 % (42.8-82.8); PLATELET COUNT 169 10^3/uL (134-434); RBC 4.94 M/mm3 (4.00-5.60); RDW 14.7 % (11.9-15.9); WHITE BLOOD COUNT 4.9 K/mm3 (4.0-10.0)
[2023-04-22 08:26] LABS: INR 1.38 (0.83-1.09)
[2023-04-22 08:28] LABS: ACTIVATED PTT 31.4 SECONDS (25.2-36.5)
[2023-04-22 08:32] LABS: POTASSIUM 3.7 mmol/L (3.5-5.1)
[2023-04-22 08:40] LABS: ALBUMIN 3.3 g/dl (3.4-5.0)
[2023-04-22 08:41] LABS: BLOOD UREA NITROGEN 13.2 mg/dL (7-18); MAGNESIUM 1.7 mg/dL (1.8-2.4)
[2023-04-22 08:43] LABS: CREATININE 1.2 mg/dL (0.55-1.3); PHOSPHOROUS 3.8 mg/dL (2.5-4.9)
[2023-04-22 08:45] LABS: BILIRUBIN,TOTAL 0.9 mg/dL (0.2-1); TOT PROT 7.1 g/dl (6.4-8.2)
[2023-04-22] MEDS: levETIRAcetam 500 MG TABLET (FP) PO SCH ×2 (10:15→22:33)
[2023-04-22] MEDS: FINASTERIDE 5 MG TABLET (FP) PO SCH (10:15)
[2023-04-22] MEDS: APIXABAN 5 MG TABLET PO SCH ×2 (10:15→22:33)
[2023-04-22] MEDS: TAMSULOSIN HCL 0.4 MG CAP PO SCH (10:15)
[2023-04-22] MEDS: ESCITALOPRAM OXALATE 20 MG TABLET PO SCH (10:15)
[2023-04-22] MEDS: LISINOPRIL 5 MG TABLET PO SCH (10:15)
[2023-04-22] MEDS: ASPIRIN 81 MG CHEWABLE TABLETS PO SCH (10:15)
[2023-04-22] MEDS: amLODIPine BESYLATE 10 MG TABLET (FP) PO SCH (10:15)
[2023-04-22] MEDS: NICOTINE 14 MG/24 HOURS TOPICAL PATCH TD SCH (10:16)
[2023-04-22] MEDS: MIRTAZAPINE 15 MG TABLET (FP) PO SCH (22:33)
[2023-04-22] MEDS: ATORVASTATIN CA 40 MG TABLET (FP) PO SCH (22:33)
[2023-04-22] MEDS: SENNOSIDES 8.8 MG/5 ML SYRUP PO SCH (22:33)
[2023-04-23] MEDS: NICOTINE 14 MG/24 HOURS TOPICAL PATCH TD SCH (12:12)
[2023-04-23] MEDS: APIXABAN 5 MG TABLET PO SCH ×2 (12:12→22:08)
[2023-04-23] MEDS: LISINOPRIL 5 MG TABLET PO SCH (12:12)
[2023-04-23] MEDS: ASPIRIN 81 MG CHEWABLE TABLETS PO SCH (12:12)
[2023-04-23] MEDS: levETIRAcetam 500 MG TABLET (FP) PO SCH ×2 (12:12→22:08)
[2023-04-23] MEDS: amLODIPine BESYLATE 10 MG TABLET (FP) PO SCH (12:13)
[2023-04-23] MEDS: TAMSULOSIN HCL 0.4 MG CAP PO SCH (12:13)
[2023-04-23] MEDS: ESCITALOPRAM OXALATE 20 MG TABLET PO SCH (12:13)
[2023-04-23] MEDS: FINASTERIDE 5 MG TABLET (FP) PO SCH (12:13)
[2023-04-23] MEDS: ATORVASTATIN CA 40 MG TABLET (FP) PO SCH (22:08)
[2023-04-23] MEDS: MIRTAZAPINE 15 MG TABLET (FP) PO SCH (22:09)
[2023-04-23] MEDS: SENNOSIDES 8.8 MG/5 ML SYRUP PO SCH (22:09)
[2023-04-24] MEDS: TAMSULOSIN HCL 0.4 MG CAP PO SCH (09:37)
[2023-04-24] MEDS: NICOTINE 14 MG/24 HOURS TOPICAL PATCH TD SCH (09:37)
[2023-04-24] MEDS: APIXABAN 5 MG TABLET PO SCH ×2 (09:37→21:20)
[2023-04-24] MEDS: ESCITALOPRAM OXALATE 20 MG TABLET PO SCH (09:37)
[2023-04-24] MEDS: amLODIPine BESYLATE 10 MG TABLET (FP) PO SCH (09:38)
[2023-04-24] MEDS: FINASTERIDE 5 MG TABLET (FP) PO SCH (09:38)
[2023-04-24] MEDS: ASPIRIN 81 MG CHEWABLE TABLETS PO SCH (09:38)
[2023-04-24] MEDS: levETIRAcetam 500 MG TABLET (FP) PO SCH ×2 (09:38→21:21)
[2023-04-24] MEDS: LISINOPRIL 5 MG TABLET PO SCH (09:38)
[2023-04-24] MEDS ORDERED: ATORVASTATIN CA 80 MG TABLET (FP) PO SCH (10:24)
[2023-04-24] MEDS ORDERED: amLODIPine BESYLATE 5 MG TABLET (FP) PO SCH (10:25)
[2023-04-24 21:19] VITALS: RESP 18
[2023-04-24] MEDS: MIRTAZAPINE 15 MG TABLET (FP) PO SCH (21:20)
[2023-04-24] MEDS: SENNOSIDES 8.8 MG/5 ML SYRUP PO SCH (21:21)
[2023-04-25 09:17] LABS: BASO % 0.8 % (0-2.0); EOS % 7.8 % (0-4.5); HEMATOCRIT 42.7 % (35.4-49); HEMOGLOBIN 14.2 GM/dL (11.7-16.9); LYMPH % 23.5 % (8-40); MCH 29.9 pg (25.7-33.7); MCHC 33.1 g/dl (32.0-35.9); MEAN CELL VOLUME 90.4 fl (80-96); MEAN PLT VOLUME 8.8 fl (7.5-11.1); MONO % 8.6 % (3.8-10.2); NEUT % 59.3 % (42.8-82.8); PLATELET COUNT 168 10^3/uL (134-434); RBC 4.73 M/mm3 (4.00-5.60); RDW 15.5 % (11.9-15.9); WHITE BLOOD COUNT 5.2 K/mm3 (4.0-10.0)
[2023-04-25 09:26] LABS: POTASSIUM 4.1 mmol/L (3.5-5.1)
[2023-04-25 09:28] LABS: ALBUMIN 3.2 g/dl (3.4-5.0)
[2023-04-25 09:33] LABS: BLOOD UREA NITROGEN 15.4 mg/dL (7-18)
[2023-04-25 09:35] LABS: CREATININE 1.3 mg/dL (0.55-1.3)
[2023-04-25 09:37] LABS: BILIRUBIN,TOTAL 0.5 mg/dL (0.2-1); TOT PROT 7.2 g/dl (6.4-8.2)
[2023-04-25 09:47] LABS: CALCIUM 9.6 mg/dL (8.5-10.1)
[2023-04-25] MEDS: NICOTINE 14 MG/24 HOURS TOPICAL PATCH TD SCH (09:57)
[2023-04-25] MEDS: FINASTERIDE 5 MG TABLET (FP) PO SCH (09:57)
[2023-04-25] MEDS: ASPIRIN 81 MG CHEWABLE TABLETS PO SCH (09:57)
[2023-04-25] MEDS: LISINOPRIL 5 MG TABLET PO SCH (09:57)
[2023-04-25] MEDS: levETIRAcetam 500 MG TABLET (FP) PO SCH (09:57)
[2023-04-25] MEDS: TAMSULOSIN HCL 0.4 MG CAP PO SCH (09:57)
[2023-04-25] MEDS: ESCITALOPRAM OXALATE 20 MG TABLET PO SCH (09:57)
[2023-04-25] MEDS: APIXABAN 5 MG TABLET PO SCH (09:57)
[2023-04-25 13:30] VITALS: BP 115/79; PULSE 74; TEMP 97.6
== END 2023-04-25 16:20 | disposition home or self-care (01) | DRG 69 ==
LOC: JER 07:25 → JERBED 09:20 → J7W 15:43 → OBSVTOIN 04-23 12:09
PROVIDERS: ADMIT Internal Medicine
DX: G45.9 Transient cerebral ischemic attack, unspecified (principal); C22.0 Liver cell carcinoma; N17.9 Acute kidney failure, unspecified; R53.1 Weakness; I10 Essential (primary) hypertension; E78.5 Hyperlipidemia, unspecified; F32.A Depression, unspecified; N40.0 Benign prostatic hyperplasia without lower urinary tract symptoms
CPT/HCPCS: 36415; 70450-TC; 70544-TC; 70551-TC; 80048; 80053; 80061; 82248; 82272; 83735; 84100; 85025; 85610; 85730; 86850; 86900; 86901; 93005; 93010; 93880-TC; 97116-GP; 97161-GP; 99285-25; G0378